=== PATIENT | male | born 1995 | race African-American/Black ===

== ENCOUNTER 2016-11-30 22:27 | Emergency (ER) | payer BC, OTHER ==
[2016-11-30 22:59] VITALS: BP 123/73
[2016-12-01] MEDS ORDERED: METRONIDAZOLE 500 MG TABLET PO ONE (00:49)
[2016-12-01] MEDS ORDERED: AZITHROMYCIN 250 MG TABLET PO ONE (00:49)
[2016-12-01] MEDS ORDERED: CEFTRIAXONE INJ 250 MG VIAL IM ONE (00:49)
[2016-12-01] MEDS ORDERED: LIDOCAINE 1% INJ-PF (10 MG/ML) 30 ML SDV INJ ONE (00:49)
--- NOTE | 2016-12-01 00:57 | ER Document Report ---
HPI - HPI Patient complains to provider of: STD exposure Pain Level: Denies Context: Patient is a 20-year-old male that comes emergency department for chief complaint of reported exposure to chlamydia. He states that his sexual partner told him today that she tested positive for chlamydia. He was last sexually active with her almost a week ago. He denies any symptoms including rash, discharge, dysuria, or any other symptoms at this time. He denies any past medical history, takes no daily medications. - DERM Skin Color: Normal Past Medical History - General Information source: Patient - Social History Smoking Status: Never Smoker Frequency of alcohol use: None Drug Abuse: None Lives with: Family Family History: Reviewed & Not Pertinent - Medical History Medical History: Negative Renal/ Medical History: Denies: Hx Peritoneal Dialysis Surgical Hx: Negative - Immunizations Immunizations up to date: Yes Hx Diphtheria, Pertussis, Tetanus Vaccination: Yes Vertical Provider Document - CONSTITUTIONAL General Appearance: WD/WN, No Apparent Distress - INFECTION CONTROL TRAVEL OUTSIDE OF THE [place] IN LAST 30 DAYS: No - HEENT HEENT: Atraumatic, Normocephalic - NECK Neck: Normal Inspection - RESPIRATORY Respiratory: Breath Sounds Normal, No Respiratory Distress O2 Sat by Pulse Oximetry: 99 - CARDIOVASCULAR Cardiovascular: Regular Rate, Regular Rhythm - GI/ABDOMEN Gastrointestinal: Abdomen Soft, Abdomen Non-Tender - NEURO Level of Consciousness: Awake, Alert, Appropriate - DERM Integumentary: Warm, Dry, No Rash Course - Re-evaluation Re-evalutation: Declines genital examination because of hallway bed. Treating for chlamydia, gonorrhea, trichomonas with Chlamydia exposure. - Vital Signs Vital signs: Temp Pulse Resp BP Pulse Ox 98.0 F 77 17 123/73 99 11/30/16 22:57 11/30/16 22:57 11/30/16 22:57 11/30/16 22:57 11/30/16 22:57 Discharge - Discharge Clinical Impression: STD exposure Condition: Stable Disposition: HOME, SELF-CARE Additional Instructions: You have been treated and covered for gonorrhea, chlamydia, trichomonas. Do not engage in sexual activity for 1 week. Follow-up with primary care. Return to emergency department for any concerning symptoms.
[2016-12-01 03:11] LABS: CHLAM PCR DETECTED (NOT DETECT)
== END 2016-12-01 01:38 | disposition home or self-care (01) ==
LOC: ER 22:27
DX: Z20.2 Contact with and (suspected) exposure to infections with a predominantly sexual mode of transmission (principal)
CPT/HCPCS: 99283; 96372; 87491; 87591; J3490; J0696